=== PATIENT | male | born 1965 | race Caucasian/White ===

== ENCOUNTER → 2016-11-20 | Outpatient (CLI) | payer BC | END | disposition home or self-care (01) | LOC: CFH 12:08 | DX: K74.60 Unspecified cirrhosis of liver (principal); R18.8 Other ascites | CPT/HCPCS: 76700 ==

== ENCOUNTER → 2018-04-18 | Outpatient (CLI) | payer BC | END | disposition home or self-care (01) | LOC: CFH 11:11 | PROVIDERS: ATTEND Internal Medicine | DX: R16.1 Splenomegaly, not elsewhere classified (principal) | CPT/HCPCS: 76700 ==